=== PATIENT | male | born 1945 | race American Indian/Alaskan Native ===

== ENCOUNTER 2017-03-13 11:41 | Emergency (ER) | payer MEDICAID, OTHER ==
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
[2017-03-13 12:25] LABS: CHLORIDE,CL 104 mmol/L (101-111); SODIUM,NA 137 mmol/L (135-145)
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
[2017-03-13] MEDS ORDERED: Acetaminophen 325 MG Tab PO ONE (13:20)
== END 2017-03-13 13:30 | disposition home or self-care (01) ==
LOC: DL.ED 11:41
DX: S06.0X1A Concussion with loss of consciousness of 30 minutes or less, initial encounter (principal); S00.33XA Contusion of nose, initial encounter; S00.03XA Contusion of scalp, initial encounter; I10 Essential (primary) hypertension; I25.10 Atherosclerotic heart disease of native coronary artery without angina pectoris; Z86.2 Personal history of diseases of the blood and blood-forming organs and certain disorders involving the immune mechanism; Z87.891 Personal history of nicotine dependence; Z79.82 Long term (current) use of aspirin; Z79.899 Other long term (current) drug therapy; Z91.030 Bee allergy status; V89.2XXA Person injured in unspecified motor-vehicle accident, traffic, initial encounter; Y92.410 Unspecified street and highway as the place of occurrence of the external cause
CPT/HCPCS: 36415; 70450; 72125; 80053; 80305; 81001; 82150; 83690; 85025; 99291; 99292; A9270; G0480; 99285

== ENCOUNTER 2017-05-25 14:53 | Emergency (ER) | payer MEDICARE, OTHER ==
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
[2017-05-25 15:06] VITALS: BP 110/80
[2017-05-25 15:15] LABS: ANION GAP 14.8; CHLORIDE,CL 102 mmol/L (101-111); SODIUM,NA 137 mmol/L (135-145)
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
--- NOTE | 2017-05-26 14:01 | EKG ---
05/25/2017- JUANCARLOS VILLAR - FINDINGS: EKG, per my reading, shows sinus rhythm with FL interval of 224. MODL /[id number]
== END 2017-05-25 16:18 | disposition home or self-care (01) ==
LOC: DL.ED 14:53
DX: R07.89 Other chest pain (principal); I10 Essential (primary) hypertension; I25.10 Atherosclerotic heart disease of native coronary artery without angina pectoris; Z87.891 Personal history of nicotine dependence; Z79.82 Long term (current) use of aspirin; Z79.899 Other long term (current) drug therapy; Z91.030 Bee allergy status
CPT/HCPCS: 36415; 71045; 80053; 84484; 85025; 93005; 93010; 99283

== ENCOUNTER 2017-12-12 10:18 | Emergency (ER) | payer OTHER ==
[2017-12-12 10:30] VITALS: BP 135/83
[2017-12-12] MEDS ORDERED: Sodium Chloride 0.9% 10 ML Syringe FLUSH PRN (10:38)
[2017-12-12] MEDS ORDERED: Aspirin 81 MG Tab.Chew PO ONE (10:38)
[2017-12-12 11:04] LABS: ANION GAP 11.9; CHLORIDE,CL 104 mmol/L (101-111); SODIUM,NA 135 mmol/L (135-145)
--- NOTE | 2017-12-12 11:25 | EDM.PDOC ---
Scribed by Angella Sinha 12/12/17 1057 for Danish Fregoso MD ED HPI GENERAL MEDICAL PROBLEM - General Chief Complaint: Chest Pain Stated Complaint: PAIN IN CHEST Time Seen by Provider: 12/12/17 10:24 Source of Information: Reports: Patient, RN, RN Notes Reviewed History Limitations: Reports: No Limitations - History of Present Illness INITIAL COMMENTS - FREE TEXT/NARRATIVE: Patient presents to ER by private vehicle with complaint of sharp jabbing and occasionally cramping pain to the left lower lateral chest wall. Patient states that he works at the [employer] and lifts a lot of trays and walks a lot. He initially thought he may have pulled a muscle, but family was concerned that it could be a heart attack and urged him to come to the hospital. Patient states that he initially said that he felt shortness of breath but now would clarify that it was more the sharpness of the pain that caused to gasp and breathe shallow. He denies actual shortness of breath. Denies any radiating pain, cough , wheezing and edema. Currently the patient is pain free. Onset: Today Duration: Constant Location: Reports: Chest Quality: Reports: Ache Severity: Moderate Improves with: Reports: None Worsens with: Reports: None Associated Symptoms: Reports: No Other Symptoms Treatments BUILDING ARCHITECT: Reports: Aspirin Left Chest Pain Score (Numeric/FACES): 7 - Related Data Allergies Allergy/AdvReac Type Severity Reaction Status Date / Time venom-honey bee Allergy Airway Verified 12/12/17 10:23 [bee venom (honey bee)] Tightness Home Meds: Home Meds Aspirin [Adult Low Dose Aspirin EC] 81 mg PO DAILY 04/11/13 [History] Ferrous Sulfate [Iron] 650 mg PO DAILY 04/11/13 [History] Gemfibrozil [Lopid] 600 mg PO DAILY 04/11/13 [History] Isosorbide Mononitrate [Imdur] 30 mg PO DAILY 04/11/13 [History] Multivitamin [One Daily Multivitamin] 1 each PO DAILY 04/11/13 [History] Docusate Sodium 100 mg PO BID PRN 05/04/14 [History] Ascorbic Acid [Vitamin C] 250 mg PO DAILY 10/09/15 [History] Esomeprazole Magnesium [Nexium] 40 mg PO ACBREAKFAST 10/09/15 [History] Acetaminophen/oxyCODONE [Percocet 325-5 MG] 1 tab PO Q8H PRN #15 tablet [Rx] Polyvinyl Alcohol [LiquiTears 1.4% Ophth Soln] 0 ml EYEBOTH ASDIRECTED PRN #0 bottle 10/26/15 [Rx] Past Medical History Cardiovascular History: Reports: CAD, Hypertension Respiratory History: Reports: COPD, Pneumonia, Recurrent Gastrointestinal History: Reports: Chronic Constipation, Gastritis, GI Bleed Musculoskeletal History: Reports: Back Pain, Chronic, Fracture, Neck Pain, Chronic Neurological History: Reports: Brain Injury, CVA Psychiatric History: Reports: Addiction, Anxiety, Other (See Below) Other Psychiatric History: history of alchohol abuse per [facility] medical record Hematologic History: Reports: Anemia - Infectious Disease History Infectious Disease History: Reports: None - Past Surgical History GI Surgical History: Reports: Colonoscopy Social & Family History - Family History Family Medical History: Unobtainable Cardiac: Reports: CAD (father and brother) Oncologic: Reports: Other (See Below) - Caffeine Use Caffeine Use: Reports: Coffee - Living Situation & Occupation Living situation: Reports: with Family Occupation: Retired ED ROS GENERAL - Review of Systems Review Of Systems: ROS reveals no pertinent complaints other than HPI. ED EXAM, GENERAL - Physical Exam Exam: See Below Exam Limited By: No Limitations General Appearance: Alert, WD/WN, No Apparent Distress Eye Exam: Bilateral Eye: Normal Inspection Ears: Normal External Exam, Hearing Grossly Normal Nose: Normal Inspection, Normal Mucosa, No Blood Throat/Mouth: Normal Inspection, Normal Lips, Normal Oropharynx, Normal Voice, No Airway Compromise Head: Atraumatic, Normocephalic Neck: Normal Inspection, Supple, Non-Tender, Full Range of Motion Respiratory/Chest: No Respiratory Distress, Lungs Clear, Normal Breath Sounds, No Accessory Muscle Use, Chest Non-Tender Cardiovascular: Normal Peripheral Pulses, Regular Rate, Rhythm, No Edema, No Murmur GI/Abdominal: Normal Bowel Sounds, Soft, Non-Tender, No Distention, No Abnormal Bruit. No: Guarding, Rigid, Rebound (Male) Exam: Deferred Rectal (Males) Exam: Deferred Back Exam: Normal Inspection Extremities: Normal Inspection, Normal Range of Motion, Non-Tender, Normal Capillary Refill, No Pedal Edema Neurological: Alert, Oriented, CN II-XII Intact, Normal Cognition, Normal Gait, No Motor/Sensory Deficits Psychiatric: Normal Affect, Normal Mood Skin Exam: Warm, Dry, Intact, Normal Color, No Rash EKG INTERPRETATION EKG Date: 12/12/17 Time: 10:28 Rhythm: Other (sinus rhythm) Rate (Beats/Min): 88 [place]: Normal P-Wave: Present QRS: Normal ST-T: Normal QT: Normal Comparison: No Change Course - Vital Signs Last Recorded V/S: Last Vital Signs Temp 37.3 C 12/12/17 10:27 Pulse 85 12/12/17 10:27 Resp 18 12/12/17 10:27 BP 135/83 12/12/17 10:27 Pulse Ox 95 12/12/17 10:27 - Orders/Labs/Meds Orders: Active Orders 24 hr Category Date Time Status EKG 12 Lead [EKG Documentation Completion] [RC] STAT Care 12/12/17 10:39 Active Peripheral IV Care [RC] . DIRECTED Care 12/12/17 10:39 Active Chest 1V Frontal [CR] Stat Exams 12/12/17 10:39 Taken Sodium Chloride 0.9% [Saline Flush] Med 12/12/17 10:38 Active 10 ml FLUSH ASDIRECTED PRN Peripheral IV Insertion Adult [OM.PC] Stat Oth 12/12/17 10:39 Ordered Medication Orders Sodium Chloride (Saline Flush) 10 ml FLUSH ASDIRECTED PRN PRN Reason: Keep Vein Open Last Admin: 12/12/17 10:42 Dose: 10 ml Labs: Laboratory Tests 12/12/17 12/12/17 Range/Units 10:34 10:34 WBC 4.3 L (5.0-10.0) 10^3/uL RBC 4.53 L (4.6-6.2) 10^6/uL Hgb 13.4 L (14.0-18.0) g/dL Hct 40.3 (40.0-54.0) % MCV 89.0 (80-100) fL MCH 29.6 (27.0-34.0) pg MCHC 33.3 (33.0-35.0) g/dL Plt Count 326 (150-450) 10^3/uL Neut % (Auto) 47.5 (42.2-75.2) % Lymph % (Auto) 39.1 (20.5-50.1) % [place] % (Auto) 10.8 H (2-8) % Eos % (Auto) 2.1 (1.0-3.0) % Baso % (Auto) 0.5 (0.0-1.0) % Sodium 135 (135-145) mmol/L Potassium 3.9 (3.6-5.0) mmol/L Chloride 104 (101-111) mmol/L Carbon Dioxide 23.0 (21.0-31.0) mmol/L Anion Gap 11.9 BUN 17 (7-18) mg/dL Creatinine 0.9 (0.6-1.3) mg/dL Est Cr Clr Drug Dosing 70.82 mL/min Estimated GFR (MDRD) > 60 BUN/Creatinine Ratio 18.88 Glucose 103 (74-105) mg/dL Calcium 9.7 (8.4-10.2) mg/dl Total Bilirubin 0.7 (0.2-1.0) mg/dL AST 23 (10-42) IU/L ALT 16 (10-60) IU/L Alkaline Phosphatase 60 (42-121) IU/L Troponin I < 0.02 (0.00-0.02) ng/ml B-Natriuretic Peptide 9 (0-100) pg/ml Total Protein 7.7 (6.7-8.2) g/dl Albumin 4.4 (3.2-5.5) g/dl Globulin 3.3 Albumin/Globulin Ratio 1.33 Amylase 86 (28-100) U/L Lipase 50 (22-51) U/L Ethyl Alcohol < 5 mg/dL Meds: Medications Generic Name Dose Route Start Last Admin Trade Name Freq PRN Reason Stop Dose Admin Sodium Chloride 10 ml 12/12/17 10:38 12/12/17 10:42 Saline Flush FLUSH 10 ml ASDIRECTED PRN Administration Keep Vein Open Discontinued Medications Generic Name Dose Route Start Last Admin Trade Name Freq PRN Reason Stop Dose Admin Aspirin 243 mg 12/12/17 10:38 12/12/17 10:42 Aspirin PO 12/12/17 10:39 243 mg ONETIME ONE Administration - Radiology Interpretation Free Text/Narrative:: Chest x-ray: Chronic COPD. No acute process. See rad report. Departure - Departure Time of Disposition: 11:23 Disposition: Home, Self-Care 01 Condition: Good Clinical Impression: Chest wall pain Instructions: Chest Wall Pain, [id number] Forms: ED Department Discharge Additional Instructions: Take your regular medications as scheduled. Activity as tolerated. Follow up in clinic next week if any further concerns. Return to ER if chest pain returns. - My Orders Last 24 Hours: My Active Orders 12/12/17 10:38 Sodium Chloride 0.9% [Saline Flush] 10 ml FLUSH ASDIRECTED PRN 12/12/17 10:39 EKG 12 Lead [EKG Documentation Completion] [RC] STAT Peripheral IV Care [RC] . DIRECTED Chest 1V Frontal [CR] Stat Peripheral IV Insertion Adult [OM.PC] Stat - Assessment/Plan Last 24 Hours: My Active Orders 12/12/17 10:38 Sodium Chloride 0.9% [Saline Flush] 10 ml FLUSH ASDIRECTED PRN 12/12/17 10:39 EKG 12 Lead [EKG Documentation Completion] [RC] STAT Peripheral IV Care [RC] . DIRECTED Chest 1V Frontal [CR] Stat Peripheral IV Insertion Adult [OM.PC] Stat I have read and agree with the documentation that has been completed regarding this visit. By signing this record, I attest that the documentation was completed in my physical presence and is an accurate record of the encounter.
--- NOTE | 2017-12-16 08:56 | EKG ---
12/12/2017- JUANCARLOS VILLAR N - FINDINGS: A 12-lead EKG shows normal sinus rhythm with a heart rate of 88. No significant ST elevation or ST depression noted on this 12-lead EKG. Nonspecific ST-T wave changes noted on lead V3. [facility] /[id number]
== END 2017-12-12 11:36 | disposition home or self-care (01) ==
LOC: DL.ED 10:18
DX: R07.89 Other chest pain (principal); J44.9 Chronic obstructive pulmonary disease, unspecified; Z91.030 Bee allergy status; Z79.82 Long term (current) use of aspirin; Z79.899 Other long term (current) drug therapy
CPT/HCPCS: 36415; 71045; 80053; 82150; 83690; 83880; 84484; 85025; 93005; 99285; A9270; G0480; J7050

== ENCOUNTER 2018-01-27 13:58 | Emergency (ER) | payer OTHER ==
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
[2018-01-27 13:04] LABS: ANION GAP 14.9; CHLORIDE,CL 102 mmol/L (101-111); SODIUM,NA 137 mmol/L (135-145)
[~2018-01-27 13:58] MED LIST: Ketorolac 30 MG/ML SDV IVPUSH ONE
== END 2018-01-27 14:05 | disposition home or self-care (01) ==
LOC: DL.ED 13:58
DX: M54.9 Dorsalgia, unspecified (principal); I10 Essential (primary) hypertension; Z91.030 Bee allergy status; Z79.82 Long term (current) use of aspirin; Z79.899 Other long term (current) drug therapy; V59.59XA Passenger in pick-up truck or van injured in collision with other motor vehicles in traffic accident, initial encounter
CPT/HCPCS: 36415; 72125; 72128; 72131; 80053; 85025; 96374; 99285; J1885

== ENCOUNTER 2021-04-23 06:46 | Emergency (ER) | payer MEDICAID, OTHER | END 2021-04-23 07:06 | disposition left against medical advice (07) | LOC: DL.ED 06:46 | DX: Z53.21 Procedure and treatment not carried out due to patient leaving prior to being seen by health care provider (principal) ==

== ENCOUNTER 2023-03-25 09:37 | Day surgery (SDC) | payer MEDICAID, OTHER ==
[2023-03-25] MEDS ORDERED: Ondansetron 4 MG/2 ML SDV IVPUSH PRN (10:00)
[2023-03-25] MEDS ORDERED: Phenylephrine 10% Ophth Soln 5 ML Bot EYELF PRN (10:00)
[2023-03-25] MEDS ORDERED: Proparacaine 0.5% Ophth Soln 15 ML Bottle EYELF ONE ×2 (10:00→11:15)
[2023-03-25] MEDS ORDERED: Timolol Maleate 0.5% Ophth Soln 5 ML Bottle EYELF ONE (10:00)
[2023-03-25] MEDS ORDERED: Acetaminophen 325 MG Tab PO PRN (10:00)
[2023-03-25] MEDS ORDERED: Moxifloxacin 0.5% Ophth Soln 3 ML Bottle EYELF ONE (10:00)
[2023-03-25] MEDS ORDERED: Cataract Ophth Solution EYELF ONE (10:00)
[2023-03-25] MEDS ORDERED: Acetaminophen/Codeine 300-30 MG Tab PO PRN (10:00)
[2023-03-25] MEDS ORDERED: Sodium Chloride 0.9% 10 ML Syringe FLUSH PRN (10:00)
[2023-03-25] MEDS ORDERED: Povidone-Iodine 5% Sterile Ophth Soln 30 ML Bottle EYELF ONE ×2 (10:00→11:16)
[2023-03-25] MEDS ORDERED: Tropicamide 1% Ophth Soln 15 ML Bottle EYELF ONE (10:00)
[2023-03-25 10:47] VITALS: BP 139/92; PULSE 79
[2023-03-25] MEDS ORDERED: Apraclonidine 0.5% Ophth Soln 5 ML Bot EYELF ONE (11:16)
[2023-03-25] MEDS ORDERED: Dexamethasone 4 MG/ML SDV ONE (11:17)
[2023-03-25] MEDS ORDERED: Diclofenac Sodium 0.1% Ophth Soln 5 ML Bottle EYELF ONE (11:18)
[2023-03-25] MEDS ORDERED: Lidocaine 1% 30 ML SDV ONE (11:19)
[2023-03-25] MEDS ORDERED: Dexamethasone/Tobramycin 0.1-0.3% Ophth Oint 3.5 GM Tube EYELF ONE (11:19)
[2023-03-25] MEDS ORDERED: Balanced Salt Solution Ophth Irrig 500 ML Bottle IOCULAR ONE (11:20)
[2023-03-25] MEDS ORDERED: Vancomycin 500 MG SDV ONE (11:20)
[2023-03-25] MEDS ORDERED: Chondroitin/Hyaluronate Sodium Ophth Inj 0.5/0.55 ML Kit IOCULAR ONE (11:21)
== END 2023-03-25 12:20 | disposition home or self-care (01) ==
LOC: DL.SDS 09:37
PROVIDERS: ATTEND Ophthalmology
DX: H25.812 Combined forms of age-related cataract, left eye (principal); I10 Essential (primary) hypertension; E78.5 Hyperlipidemia, unspecified; I20.9 Angina pectoris, unspecified; D50.9 Iron deficiency anemia, unspecified; E11.36 Type 2 diabetes mellitus with diabetic cataract; F17.229 Nicotine dependence, chewing tobacco, with unspecified nicotine-induced disorders; K59.00 Constipation, unspecified; Z86.73 Personal history of transient ischemic attack (TIA), and cerebral infarction without residual deficits; Z79.899 Other long term (current) drug therapy; Z79.82 Long term (current) use of aspirin
CPT/HCPCS: 00142; 99100; A9270-GY; J1100; J3370; J3490; V2632

== ENCOUNTER → 2023-04-15 | Day surgery (SDC) | payer OTHER ==
[~2023-04-15] MED LIST changes: +Acetaminophen 325 MG Tab PO PRN; +Acetaminophen/Codeine 300-30 MG Tab PO PRN; +Apraclonidine 0.5% Ophth Soln 5 ML Bot EYERT ONE; +Balanced Salt Solution Ophth Irrig 500 ML Bottle IOCULAR ONE; +Cataract Ophth Solution EYERT ONE; +Chondroitin Sulfate/Hyaluronate Sodium Ophth Inj 0.75 ML Syringe EYERT ONE; +Dexamethasone 4 MG/ML SDV ONE; +Dexamethasone/Neomycin/Polymyxin B Ophth Oint 3.5 GM Tube EYERT ONE; +Diclofenac Sodium 0.1% Ophth Soln 5 ML Bottle EYERT ONE; -Ketorolac 30 MG/ML SDV IVPUSH ONE; +Lidocaine 1% 30 ML SDV ONE; +Moxifloxacin 0.5% Ophth Soln 3 ML Bottle EYERT ONE; +Ondansetron 4 MG/2 ML SDV IVPUSH PRN; +Phenylephrine 10% Ophth Soln 5 ML Bot EYERT PRN; +Povidone-Iodine 5% Sterile Ophth Soln 30 ML Bottle EYERT ONE; +Proparacaine 0.5% Ophth Soln 15 ML Bottle EYERT ONE; +Sodium Chloride 0.9% 10 ML Syringe FLUSH PRN; +Timolol Maleate 0.5% Ophth Soln 5 ML Bottle EYERT ONE; +Tropicamide 1% Ophth Soln 15 ML Bottle EYERT ONE; +Vancomycin 500 MG SDV EYERT ONE
[2023-04-15 12:25] VITALS: BP 136/80; PULSE 74
== END ==
LOC: DL.SDS 09:43
PROVIDERS: ATTEND Ophthalmology
DX: H25.811 Combined forms of age-related cataract, right eye (principal); I10 Essential (primary) hypertension; E11.9 Type 2 diabetes mellitus without complications; E78.5 Hyperlipidemia, unspecified; D50.9 Iron deficiency anemia, unspecified; Z79.899 Other long term (current) drug therapy
CPT/HCPCS: 00142; 99100; A9270-GY; J1100; J3370; J3490

== ENCOUNTER 2024-03-08 14:45 | Emergency (ER) | payer SELFPAY ==
[2024-03-08 14:47] VITALS: BP 164/93; PULSE 99
[2024-03-08] MEDS: Oxymetazoline 0.05% Nasal Spray 30 ML Bottle NAS ONE (14:51)
== END 2024-03-08 14:58 | disposition home or self-care (01) ==
LOC: DL.ED 14:45
CPT/HCPCS: A9270-GY

== ENCOUNTER 2024-03-10 03:26 | Emergency (ER) | payer SELFPAY ==
[2024-03-10 03:48] VITALS: BP 164/93; PULSE 85
[2024-03-10] MEDS: Bacitracin Oint 1 GM U/D Packet TOP ONE (04:00)
== END 2024-03-10 04:15 | disposition home or self-care (01) ==
LOC: DL.ED 03:26
DX: R04.0 Epistaxis (principal); I10 Essential (primary) hypertension; Z91.030 Bee allergy status; Z79.82 Long term (current) use of aspirin; Z79.899 Other long term (current) drug therapy
CPT/HCPCS: 99283; A9270